=== PATIENT | female | born 1935 | race Caucasian/White ===

== ENCOUNTER 2021-03-03 16:55 | Inpatient (IN) | payer MEDICARE, BC ==
[~2021-03-03] VITALS: Ht 162.6 cm; Wt 54.4 kg
[2021-03-03] MEDS ORDERED: MEMA10TA PO (17:07)
[2021-03-03] MEDS ORDERED: AMLO-213 PO (17:07)
[2021-03-03] MEDS ORDERED: MIRT-90 PO (17:07)
[2021-03-03] MEDS ORDERED: ATOR40TA PO (17:07)
[2021-03-03] MEDS ORDERED: DONE10TA44 PO (17:07)
[2021-03-03] MEDS ORDERED: QUET25TA PO (17:07)
--- NOTE | 2021-03-03 17:15 | NUR ---
BB daughter to ER, from [facility] - they reported that the patient refused to eat and she has not been sleeping since .
[2021-03-03 17:38] LABS: BASOPHILS # (AUTO) 0.1 K/uL (0.0-0.2); BASOPHILS % (AUTO) 1.3 % (0.0-2.0); EOSINOPHILS % (AUTO) 4.4 % (0.0-6.0); HEMATOCRIT 42 % (33-45); HEMOGLOBIN 13.3 g/dL (11.5-14.8); LYMPHOCYTES # (AUTO) 1.9 K/uL (0.8-4.8); LYMPHOCYTES % (AUTO) 24.5 % (20.0-44.0); MEAN CORPUSCULAR HGB CONC 32 g/dl (31.0-36.0); MEAN CORPUSCULAR VOLUME 85 fL (82-100); MONOCYTES # (AUTO) 0.4 K/uL (0.1-1.30); MONOCYTES % (AUTO) 5.4 % (2.0-12.0); NEUTROPHILS # (AUTO) 4.9 K/uL (1.8-8.9); NEUTROPHILS % (AUTO) 64.4 % (43.0-81.0); PLATELET COUNT (AUTO) 368 K/uL (150-450); RED BLOOD CELL COUNT(AUTO) 4.97 MIL/uL (4.0-5.2); WHITE BLOOD COUNT (AUTO) 7.6 K/uL (4.3-11.0)
[2021-03-03 17:44] LABS: CALCIUM, SERUM 8.8 mg/dL (8.5-10.1); CARBON DIOXIDE 26 mmol/L (21-32); CHLORIDE 107 mmol/L (98-107); CREATININE 1.5 mg/dL (0.6-1.3); GLUCOSE 201 mg/dL (74-106); POTASSIUM 3.5 mmol/L (3.5-5.1); SODIUM SERUM 143 mmol/L (136-145); UREA NITROGEN, BLOOD 21 mg/dL (7-18)
[2021-03-03 17:53] LABS: ALANINE AMINOTRANSFERASE 21 U/L (12-78); ALKALINE PHOSPHATASE 157 U/L (46-116); ASPARTATE AMINOTRANSFERASE 19 U/L (15-37); BILIRUBIN,DIRECT 0.1 mg/dL (0.0-0.2); BILIRUBIN,TOTAL 0.3 mg/dL (0.2-1.0); TOTAL PROTEIN, SERUM 7.1 g/dL (6.4-8.2)
[2021-03-03 17:54] LABS: ACETAMINOPHEN < 2 ug/ml (10-30); ALCOHOL, BLOOD < 3 mg/dL (0-0)
--- NOTE | 2021-03-03 19:04 | NUR ---
urine collected and sent to lab.
[2021-03-03 19:15] LABS: BILIRUBIN,URINE Negative (NEGATIVE); COLOR,URINE YELLOW (YELLOW); LEUKOCYTE ESTERASE ,URINE Negative (NEGATIVE); NITRITE, URINE Negative (NEGATIVE); PH,URINE 5.5 (5.0-8.0); PROTEIN,URINE Negative (NEGATIVE); UGLUCOSE Negative (NEGATIVE); UROBILINOGEN,URINE 0.2 EU/dL (0.2)
--- NOTE | 2021-03-03 19:24 | NUR ---
PAGED EPIC FOR PANEL CALL. AWAITING A CALL BACK.
[2021-03-03 19:26] LABS: BACTERIA,URINE Rare /HPF (None Seen); SQUAMOUS EPITHELIAL CELL,UR Few /HPF (None Seen); WBC,URINE NONE SEEN /HPF (0-3)
--- NOTE | 2021-03-03 19:46 | NUR ---
CALLED ELEVATOR TECHNICIAN EVERETT FOR EVAL OF PT. CALL WAS RECIEVED.
--- NOTE | 2021-03-03 19:58 | NUR ---
COVID SWAB COLLECTED AND SENT TO LAB
[2021-03-03] MEDS ORDERED: IV NS 0.9% 500 ML BAG IV ONE (20:00)
--- NOTE | 2021-03-03 20:39 | NUR ---
EVERETT FROM CRISIS TEAM AT BED SIDE TO EVAL
--- NOTE | 2021-03-03 21:43 | NUR ---
REPORT IS GIVEN TO MIGUEL MORRISON AT [facility]
--- NOTE | 2021-03-03 21:55 | NUR ---
PT WAS TRANSFERRED TO [facility] IN STABLE CONDITION
[2021-03-03 22:00] VITALS: BP 130/77
--- NOTE | 2021-03-03 22:00 | NUR ---
[facility] electronic engineering draftsperson notes Received Pt a 86 Y O female from ER. Pt arrived at the unit with two staffs. Hold was placed on 03/03/2021 @ 2049. Per hold Pt is confused, disorganized and disoriented, refusing meds, spitting and throwing meds, not sleeping, anxious, restless, agitated, pulling out cord and cable tv and no viable plan for self care, not eating and not sleeping since last . Unable to care for self. Upon face to face evaluation, Patient is A/oX1, confused, disorganized, anxious and disoriented. skin assessment is done and performed and pictures taken. Accu check done, BS93mg/dl. MRSA swabbed is done. VS is stable. Respiration is normal in room air. No SOB. No S/s of distress noted. Pt's belonging is checked and placed in Pt's locker. Contraband is checked. Pt offered snacks, and water. Reality orientation is provided. Pt denies SI/Hi at this time. Patient is under Psychiatric care of Dr. Pruitt and the medical care of Dr. Solorio. Safety precautions is maintained. bed at low position., brakes locked, side rails upX2, bed alarm is on. Will continue to monitor Q 15 mins check for safety, mood and behavior.
[2021-03-03] MEDS ORDERED: BLOOD SUGAR DIAGNOSTIC 1 EACH STRIP IN ONE (22:30)
[2021-03-03] MEDS ORDERED: MAGNESIUM HYDROXIDE 30 ML UDC PO PRN (22:30)
[2021-03-03] MEDS ORDERED: LORAZEPAM 0.5 MG TABLET PO PRN (22:30)
[2021-03-03] MEDS ORDERED: MAG HYDROX/AL HYDROX/SIMETH 30 ML UDC PO PRN (22:30)
[2021-03-04] MEDS: ZOLPIDEM TARTRATE 5 MG TABLET PO PRN ×2 (01:16→22:58)
--- NOTE | 2021-03-04 01:27 | NUR ---
RN [facility] notes Pt is having insomnia. Administered ambien 5 mg/po as ordered for sleeping. Safety precautions is maintained. Will continue to monitor.
[2021-03-04 06:58] LABS: BASOPHILS # (AUTO) 0.1 K/uL (0.0-0.2); BASOPHILS % (AUTO) 1.1 % (0.0-2.0); HEMATOCRIT 37 % (33-45); HEMOGLOBIN 12.3 g/dL (11.5-14.8); LYMPHOCYTES # (AUTO) 1.8 K/uL (0.8-4.8); LYMPHOCYTES % (AUTO) 23.6 % (20.0-44.0); MEAN CORPUSCULAR HGB CONC 33 g/dl (31.0-36.0); MEAN CORPUSCULAR VOLUME 83 fL (82-100); MONOCYTES # (AUTO) 0.5 K/uL (0.1-1.30); NEUTROPHILS # (AUTO) 4.8 K/uL (1.8-8.9); NEUTROPHILS % (AUTO) 63.3 % (43.0-81.0); PLATELET COUNT (AUTO) 340 K/uL (150-450); RED BLOOD CELL COUNT(AUTO) 4.51 MIL/uL (4.0-5.2); WHITE BLOOD COUNT (AUTO) 7.6 K/uL (4.3-11.0)
[2021-03-04 07:24] LABS: THYROID STIMULATING HORMONE 2.22 uIU/mL (0.358-3.74)
[2021-03-04 08:00] VITALS: BP 127/82
[2021-03-04] MEDS: AMLODIPINE BESYLATE 10 MG TABLET PO SCH ×2 (08:31→08:42)
[2021-03-04] MEDS: MEMANTINE HCL 5 MG TABLET PO SCH ×3 (08:31→16:44)
--- NOTE | 2021-03-04 08:31 | NUR ---
RN NOTE- PT ATTEMPTING TO CLIMB OUT OF BED UNASSISTED, COMBATIVE AND STRIKING STAFF. ATIVAN 1 MG ADMINISTERED
--- NOTE | 2021-03-04 08:42 | NUR ---
RN NOTE- PT SLAPPED MEDS OUT OF HAND. REFUSED ,.. ATIVAN 1 MG WASTED W CHARLOTTE RIVERA
[2021-03-04 08:52] LABS: ALBUMIN 2.7 g/dL (3.4-5.0); BILIRUBIN,TOTAL 0.4 mg/dL (0.2-1.0); CALCIUM, SERUM 8.2 mg/dL (8.5-10.1); CREATININE 1.2 mg/dL (0.6-1.3); POTASSIUM 3.6 mmol/L (3.5-5.1); TOTAL PROTEIN, SERUM 6.1 g/dL (6.4-8.2)
--- NOTE | 2021-03-04 09:55 | NUR ---
WOUND CARE CONSULT: UNABLE TO DO SKIN ASSESSMENT DUE TO PT AGITATED AND COMBATIVE. WILL SEE PT PT CONDITION PERMITS.
--- NOTE | 2021-03-04 10:18 | NUR ---
RN NOTE- DR ZAPIEN AT UNIT. ORDERED NEURO CONSULT W DR HERRERA AND HAD THIS RN NOTIFY MEDICAL GREEN CHAIN OFFBEARER TO BE AWARE OF TWO FALLS IN NOVEMBER . ONE INVOLVING SURGICAL REPAIR AND ONE WITHOUT. ALSO STROKE IN NOVEMBER AND PT WAS FOUND ON CT SCAN TO HAVE THYROID NODULES WHICH WERE NOT ADDRESSED. HODAN STARR ELECTRIC SHOVEL OPERATOR NOTIFIED AND CASSIDY AT DR [place] OFFICE NOTIFIED ON COSULT
[2021-03-04 12:55] LABS: CHOLESTEROL 131 mg/dL (<200); HDL CHOLESTEROL 56 mg/dL (40-60); LDL 62 mg/dL (0-99); TRIGLYCERIDES 40 mg/dL (30-150)
--- NOTE | 2021-03-04 14:28 | NUR ---
ROSALVA Initial Discharge Plan: Patient currently resides at [facility] located at [address] [place] [id number] ;([phone]). ROSALVA spoke with Brittany Vick from [facility] who stated that pt is welcomed back upon dc. ROSALVA contacted pt's daughter Barbra ([phone]) to gather collateral, however, she was unavailable. ROSALVA left a voicemail. ROSALVA will work with the MD and family to coordinate appropriate discharge.
--- NOTE | 2021-03-04 14:29 | NUR ---
ROSALVA Family Contact: ROSALVA contacted pt's daughter Barbra ([phone]) to gather collateral, however, she was unavailable. ROSALVA left a voicemail.
[2021-03-04] MEDS: ENSURE ENLIVE 237 ML LIQUID (VANILLA) PO SCH ×2 (14:30→16:50)
--- NOTE | 2021-03-04 15:23 | NUR ---
Home Health: SW received a call from Rachel from [place] home health agency ([phone] ([phone]) who stated that pt has an active home health services and would want to resume services back upon dc.
--- NOTE | 2021-03-04 15:23 | NUR ---
SW Family Contact: SW received a voicemail from Barbra ([phone]) who stated upon dc she would want pt to return back to [facility].
[2021-03-04 16:11] VITALS: BP 93/75
[2021-03-04] MEDS: QUETIAPINE FUMARATE 25 MG TABLET PO SCH ×2 (16:49→21:49)
--- NOTE | 2021-03-04 20:00 | NUR ---
RN NOTES: RECEIVED PATIENT AWAKE IN [place] CHAIR PATIENT WAS AGITATED, COMBATIVE AND NOT ABLE TO LISTEN TO INSTRUCTION, VERBALLY RESPONSIVE, NO SOB NOTED, NO COMPLAIN OF PAIN. AND DISCOMFORT, PATIENT IS NONE AMBULATORY DUE TO UNSTEADY GAIT, KEPT CLEAN AND DRY, WILL CONTINUE TO MONITOR.
[2021-03-04] MEDS: ATORVASTATIN 40 MG TABLET PO SCH (21:48)
[2021-03-04] MEDS: DONEPEZIL 5 MG TABLET PO SCH (21:48)
--- NOTE | 2021-03-04 23:26 | NUR ---
MIGUEL NOTES: URIN SPECIMEN TAKEN AT [address] IN BUCKET WITH CUP ON ICE.
[2021-03-05 06:38] LABS: BILIRUBIN,URINE NEGATIVE (NEGATIVE); COLOR,URINE YELLOW (YELLOW); NITRITE, URINE POSITIVE (NEGATIVE); PH,URINE 5.5 (5.0-8.0); PROTEIN,URINE NEGATIVE (NEGATIVE); UGLUCOSE NEGATIVE (NEGATIVE); UROBILINOGEN,URINE 0.2 EU/dL (0.2)
--- NOTE | 2021-03-05 07:18 | NUR ---
GPS RN NOTE RECEIVED PATIENT ASLEEP ON BED. COMFORT MEASURES PROVIDED. PATIENT ALLOWED TO SLEEP. ENDORSED, PATIENT SLEPT 3 HOURS LAST NIGHT AND THEN WENT TO SLEEP AGAIN AROUND 0530H. PATIENT DOES NOT SHOW ANY SIGNS OF DISTRESS WITH RR OF 19. PROVIDED WITH CALM AND QUIET ENVIRONMENT. SAFETY MEASURES ENSURED WITH SIDERAILS UP AND BED ALARM ON. WILL CONTINUE TO MONITOR PATIENT.
[2021-03-05 08:00] VITALS: BP 154/63
--- NOTE | 2021-03-05 08:15 | NUR ---
GPS RN NOTE WHEN PATIENT WAS BEING ASSISTED EATING, PATIENT NOTED TO HAVE MEPILEX ON HER LEFT FORE ARM. PATIENT REFUSING TO HAVE IT CHECKED BUT PART OF THE MEPILEX WAS OFF AND NOTED WOUND ON THE LEFT FORE ARM. PATIENT REFUSED TO HAVE IT CHECKED AT THIS TIME. WILL ASK AGAIN LATER TO CHECK IT. WILL CONTINUE TO MONITOR PATIENT.
[2021-03-05] MEDS: ENSURE ENLIVE 237 ML LIQUID (VANILLA) PO SCH ×2 (09:00→17:35)
[2021-03-05 09:13] LABS: RBC,URINE NONE SEEN /HPF (0-2)
[2021-03-05 09:14] LABS: BACTERIA,URINE 2+ /HPF (None Seen); LEUKOCYTE ESTERASE ,URINE 1+ (NEGATIVE); SQUAMOUS EPITHELIAL CELL,UR Few /HPF (None Seen); URINE AMORPHOUS URATE Many /HPF (None Seen)
[2021-03-05 09:15] LABS: CALCIUM OXALATE CRYSTALS,UR Moderate /HPF (None Seen)
--- NOTE | 2021-03-05 09:15 | NUR ---
GPS RN NOTE PATIENT REFUSING MEDICATION. WILL TRY AGAIN LATER. PATIENT IS NON COMPLIANT AND SUSPICIOUS. WILL CONTINUE TO MONITOR PATIENT.
--- NOTE | 2021-03-05 09:30 | NUR ---
MS RN NOTE PATIENT WOUND EXAMINED AND PICTURE TAKEN AND ATTACHED TO CHART. WOUND RE-DRESSED INDICATED AND DR. VYAS NOTIFIED FOR POSSIBLE WOUND CONSULT. WILL CONTINUE TO MONITOR PATIENT.
[2021-03-05] MEDS: MEMANTINE HCL 5 MG TABLET PO SCH ×2 (10:10→17:00)
[2021-03-05] MEDS: QUETIAPINE FUMARATE 25 MG TABLET PO SCH ×3 (10:11→21:38)
[2021-03-05] MEDS: AMLODIPINE BESYLATE 10 MG TABLET PO SCH (10:15)
--- NOTE | 2021-03-05 10:30 | NUR ---
GPS RN NOTE PATIENT ONLY ABLE TO TAKE SOME MEDICATION, WHEN SHE GOT A TASTE OF THE MEDICATION SHE STARTED SPITTING IT OUT. WAS ABLE TO TAKE ONLY HALF OF THE MEDICATION GIVEN MIXED WITH APPLE SAUCE.
--- NOTE | 2021-03-05 13:00 | NUR ---
[facility]PS RN NOTE SEEN BY LUZ STRONG OF HEAMATOLOGY/ ONCOLOGY.
--- NOTE | 2021-03-05 15:37 | NUR ---
GPS NOTE PATIENT FOR BLOOD DRAW ORDERED, BUT REFUSED TO HAVE BLOOD DRAWN. ADJUNCT PSYCHOLOGY INSTRUCTOR WILL TRY AGAIN LATER. WILL CONTINUE TO MONITOR PATIENT.
[2021-03-05 16:00] VITALS: BP 134/74
--- NOTE | 2021-03-05 17:38 | NUR ---
GPS NOTE PATIENT PATIENT IS ALERT AND COHERENT. REFUSING MEDICATION, PATIENT ALSO REFUSING PUDDING, JUICE OR APPLE SAUCE MEANS TO GIVE MEDICATION. PATIENT VERY SUSPICIOUS ABOUT APPLE SAUCE OR PUDDING [id number] TO HER. SHE SAID SHE DOES NOT NEED MEDICATION AND THAT SHE IS PERFECTLY FINE. EXPLAINED RISKS AND BENEFITS OF MEDICATION COMPLIANCE AND NON-COMPLIANCE. VERBALIZED UNDERSTANDING. WILL CONTINUE TO MONITOR PATIENT.
--- NOTE | 2021-03-05 19:00 | NUR ---
GPS RN NOTE RECEIVED PATIENT AWAKE AND IN BED, SITTER AT BEDSIDE, NO S/S OR COMPLAINTS OF PAIN AT THIS TIME. PATIENT IS DISPLAYING NO S/S OF APPARENT DISTRESS AT THIS TIME. BREATHING IS EVEN AND UNLABORED WITH EQUAL RISE AND FALL OF THE CHEST. PATIENT IS AO X 2, ON ROOM AIR WITH SPO2 97%. PATIENT IS COMPLIANT WITH MEDICATION, RESPONDING TO INTERNAL STIMULI, AND COOPERATIVE. PATIENT DENIES SUICIDAL AND HOMICIDAL ISEATIONS AT THIS TIME. PATIENT IS AMBULATORY AND ASSISTED BY SITTER WITH TOILETING. EDUCATED PATIENT ON THE USE OF THE CALL LIGHT. PATIENT SIDE RAILS UP X 2 FOR SAFETY, BED IS LOCKED AND LOW. WILL CONTINUE TO MONITOR Q15 MIN WITH THE HELP OF SITTER TO MAINTAIN SAFETY.
--- NOTE | 2021-03-05 19:00 | NUR ---
GPS RN NOTE RECEIVED PATIENT AWAKE, AMBULATORY AND HAS BEEN WALKING AROUND THE UNIT, NO S/S OR COMPLAINTS OF PAIN AT THIS TIME. PT IS GERMAN SPEAKING BUT UNDERSTANDS SIMPLE INSTRUCTIONS IN [place]. PATIENT IS DISPLAYING NO S/S OF APPARENT DISTRESS AT THIS TIME. BREATHING IS EVEN AND UNLABORED WITH EQUAL RISE AND FALL OF THE CHEST. PATIENT IS AO X 2, ON ROOM AIR WITH SPO2 96%. PATIENT IS RESPONDING TO INTERNAL STIMULI, AND COOPERATIVE. PATIENT DENIES SUICIDAL AND HOMICIDAL ISEATIONS AT THIS TIME. SAFETY MEASURES IN PLACE, BED IS LOCKED AND LOW. WILL CONTINUE TO MONITOR Q15 MIN WITH THE HELP OF SITTER TO MAINTAIN SAFETY. Addendum: 03/06/21 at 0108 by BENITO SORIA RN THIS DOCUMENTATION IS MEANT FOR ANOTHER PATIENT
--- NOTE | 2021-03-05 19:00 | NUR ---
GPS RN NOTE PATIENT AWAKE ON TIM CHAIR WITH DAUGHTER AT BEDSIDE. BLOOD DRAWN DONE. PATIENT DOES NOT SHOW ANY SIGNS OF DISTRESS WITH RR OF 19. PROVIDED WITH CALM AND QUIET ENVIRONMENT. SAFETY MEASURES ENSURED ON CLOSE WATCH. PATIENT WAS VERY SUSPICIOUS AND WOULD USUALLY SPIT MEDICATION WHEN SHE GETS A TASTE OF IT. MIXED MEDICATION WITH PUDDING AND SHE WAS ABLE TO TOLERATE IT. WILL ENDORSE TO NEXT SHIFT FOR CONTINUITY OF CARE.
[2021-03-05 20:00] VITALS: BP_SYST 137; BP_SYST 147; BP_DIAS 79
[2021-03-05] MEDS: ATORVASTATIN 40 MG TABLET PO SCH (21:38)
[2021-03-05] MEDS: DONEPEZIL 5 MG TABLET PO SCH (21:38)
[2021-03-06 08:00] VITALS: BP 146/69
[2021-03-06] MEDS: ENSURE ENLIVE 237 ML LIQUID (VANILLA) PO SCH ×2 (09:05→17:06)
[2021-03-06] MEDS: MEMANTINE HCL 5 MG TABLET PO SCH ×2 (09:06→17:00)
[2021-03-06] MEDS: AMLODIPINE BESYLATE 10 MG TABLET PO SCH (09:06)
[2021-03-06] MEDS: QUETIAPINE FUMARATE 25 MG TABLET PO SCH ×4 (09:06→21:57)
--- NOTE | 2021-03-06 09:30 | NUR ---
RADIOLOGY UNABLE TO DO THYROID SCAN PT IS REQUIRED TO REMAIN STILL FOR 45 MINUTES AND TO SWALLOW A LARGE PILL, PER TECH. PCP MINDY AWARE.
[2021-03-06 16:00] VITALS: BP 128/64
--- NOTE | 2021-03-06 19:30 | NUR ---
GPS RN NOTE, RECEIVED PATIENT AWAKE AND IN BED, NO S/S OR COMPLAINTS OF PAIN AT THIS TIME. PATIENT IS DISPLAYING NO S/S OF APPARENT DISTRESS AT THIS TIME. PATIENT BREATHING IS UNLABORED WITH EQUAL RISE AND FALL OF THE CHEST. PATIENT IS ALERT AND ORIENTED X 1-2 ON ROOM AIR WITH A SPO2 97%. PATIENT IS NON COMPLIANT WITH MEDICATIONS, CONFUSED, FORGETFUL, ANXIOUS AT TIMES, UNCOOPERATIVE AND NEEDS REDIRECTION. PATIENT DENIES SUICIDAL AND HOMICIDAL IDEATIONS AT THIS TIME. PATIENT ASSISTED WITH TURNING AND REPOSITIONING Q2HR AND PRN FOR COMFORT AND CIRCULATION. PATIENT HAS NO NEEDS AT THIS TIME. PATIENT EDUCATED ON THE USE OF THE CALL STOUT. PATIENT BED SIDE RAILS UP X 2 FOR SAFETY. PATIENT BED IS LOCKED, LOW, WITH BED ALARM ON. WILL CONTINUE TO MONITOR THIS PATIENT Q15 MINUTES WITH THE HELP OF STAFF TO MAINTAIN SAFETY.
[2021-03-06 19:46] VITALS: BP 136/74
[2021-03-06] MEDS: ATORVASTATIN 40 MG TABLET PO SCH ×2 (21:40→21:57)
[2021-03-06] MEDS: DONEPEZIL 5 MG TABLET PO SCH ×2 (21:40→21:57)
--- NOTE | 2021-03-06 21:57 | NUR ---
GPS RN NOTE, PATIENT REFUSED ARICEPT 10MG PO HS, LIPITOR 80MG PO HS, AND SEROQUEL 50MG PO HS. OFFERED AFOREMENTIONED THREE TIMES AND STILL PATIENT REFUSED STATING, " IT'S MY BODY AND I HAVE THE RIGHT TO REFUSE MEDICATION IF I WANT TO ". EDUCATED PATIENT ON THE RISKS AND BENEFITS OF TAKING AND REFUSING ARICEPT, LIPITOR, SEROQUEL. WILL CONTINUE TO MONITOR THIS PATIENT WITH THE HELP OF STAFF.
[2021-03-07] MEDS: ZOLPIDEM TARTRATE 5 MG TABLET PO PRN ×2 (02:07→21:56)
--- NOTE | 2021-03-07 02:07 | NUR ---
GPS RN NOTE, PATIENT HAS A COMPLAINT OF NOT BEING ABLE TO SLEEP AND IS REQUESTING MEDICATION. PATIENT VITAL SIGNS ARE STABLE. GAVE AMBIEN 5 MG PO HS PRN ORDERED. WILL REASSESS FOR INSOMNIA AND I WILL CONTINUE TO MONITOR THIS PATIENT.
[2021-03-07 08:00] VITALS: BP 141/65
[2021-03-07] MEDS: MEMANTINE HCL 5 MG TABLET PO SCH ×2 (08:29→16:51)
[2021-03-07] MEDS: QUETIAPINE FUMARATE 25 MG TABLET PO SCH ×3 (08:30→21:06)
[2021-03-07] MEDS: AMLODIPINE BESYLATE 10 MG TABLET PO SCH (08:30)
[2021-03-07] MEDS: ENSURE ENLIVE 237 ML LIQUID (VANILLA) PO SCH ×2 (08:31→16:44)
--- NOTE | 2021-03-07 09:48 | NUR ---
Individual Therapy Note: pipe production worker met with patient and provided brief supportive counseling. Patient presented quite confused and disoriented. Patient barely alert and oriented to self.
[2021-03-07 16:00] VITALS: BP 122/63
[2021-03-07 19:54] VITALS: BP 121/70
[2021-03-07] MEDS: DONEPEZIL 5 MG TABLET PO SCH (21:05)
[2021-03-07] MEDS: ACETAMINOPHEN 325 MG TABLET PO PRN (21:06)
[2021-03-07] MEDS: ATORVASTATIN 40 MG TABLET PO SCH (21:06)
--- NOTE | 2021-03-07 21:08 | NUR ---
GPS RN NOTES: TYLENOL 650MG PO GIVEN FOR BACK PAIN AT 2105. WILL CONTINUE TO MONITOR.
--- NOTE | 2021-03-07 21:59 | NUR ---
GPS RN NOTES: Ambien 5mg given PO at 2156. Will continue to monitor.
--- NOTE | 2021-03-08 06:53 | NUR ---
GPS RN CLOSING NOTES: PATIENT IS CURRENTLY LAYING IN BED, SLEEPING INTERMITTENTLY. PATIENT SLEPT 8HRS THIS SHIFT. NO S/S OF DISTRESS. RESPIRATION EVEN AND UNLABORED WITH EQUAL RISE AND FALL OF THE CHEST, ON ROOM AIR. ALL PATIENT CARE NEEDS HAVE BEEN MET ANTICIPATED. WILL CONTINUE TO MONITOR AND AND ENDORSE TO AM SHIFT.
[2021-03-08 08:00] VITALS: BP 126/60
[2021-03-08] MEDS: ENSURE ENLIVE 237 ML LIQUID (VANILLA) PO SCH ×2 (08:31→17:40)
[2021-03-08] MEDS: MEMANTINE HCL 5 MG TABLET PO SCH ×2 (08:32→17:41)
[2021-03-08] MEDS: QUETIAPINE FUMARATE 25 MG TABLET PO SCH ×4 (08:32→22:00)
[2021-03-08] MEDS: AMLODIPINE BESYLATE 10 MG TABLET PO SCH (08:33)
[2021-03-08 16:00] VITALS: BP 130/72
[2021-03-08] MEDS: DONEPEZIL 5 MG TABLET PO SCH ×2 (21:22→22:00)
[2021-03-08] MEDS: ATORVASTATIN 40 MG TABLET PO SCH ×2 (21:22→22:00)
--- NOTE | 2021-03-08 22:23 | NUR ---
MIGUEL NOTES: 3X TRIED TO GIVE PREPARED MEDICATION TO PATIENT, SHE TOOK AND SPIT IT ALL OUT. Addendum: 03/08/21 at 2256 by ARIADNA FISHER RN ADDED NOTES: -MEREDITH/MIGUEL/BIJAN NOTIFIED.
--- NOTE | 2021-03-08 22:56 | NUR ---
RN NOTES: DANUTA TRIED TO GET HER V/S SEVERAL TIMES BUT SHE STRONGLY REFUSED, SHE HAS PERIODS OF ANXIOUSNESS, SHE WILL TALK CONTINUOUSLY AND ASKING THE SAME QUESTION ALL OVER AGAIN. BUT NO COMBATIVE BEHAVIOR.SHE JUST THROW HER BLANKET ON THE FLOOR, ON CLOSE WATCH.
[2021-03-09 08:00] VITALS: BP 142/57
[2021-03-09] MEDS: ENSURE ENLIVE 237 ML LIQUID (VANILLA) PO SCH ×2 (08:30→17:38)
[2021-03-09] MEDS: AMLODIPINE BESYLATE 10 MG TABLET PO SCH (08:32)
[2021-03-09] MEDS: QUETIAPINE FUMARATE 25 MG TABLET PO SCH ×3 (08:32→21:12)
[2021-03-09] MEDS: MEMANTINE HCL 5 MG TABLET PO SCH ×2 (08:32→17:39)
[2021-03-09 16:00] VITALS: BP 144/76
[2021-03-09 19:34] VITALS: BP 144/53
[2021-03-09] MEDS: DONEPEZIL 5 MG TABLET PO SCH (21:12)
[2021-03-09] MEDS: ATORVASTATIN 40 MG TABLET PO SCH (21:12)
[2021-03-09] MEDS: ZOLPIDEM TARTRATE 5 MG TABLET PO PRN (22:00)
--- NOTE | 2021-03-10 06:46 | NUR ---
GPS RN CLOSING NOTES: PATIENT IS CURRENTLY SLEEPING COMFORTABLY IN BED. PATIENT SLEPT 7HRS THIS SHIFT. WEEKLY SKIN ASSESSMENT DONE, PICTURES TAKEN AND PLACED IN PATIENT CHART. NO S/S OF DISTRESS. RESPIRATION EVEN AND UNLABORED WITH EQUAL RISE AND FALL OF THE CHEST, ON ROOM AIR. ALL PATIENT CARE NEEDS HAVE BEEN MET ANTICIPATED. BED IN LOWEST POSITION AND LOCKED, SIDE RAILS UP X2 FOR SAFETY. WILL CONTINUE TO MONITOR AND AND ENDORSE TO AM SHIFT.
[2021-03-10 08:00] VITALS: BP 128/72
[2021-03-10] MEDS: ENSURE ENLIVE 237 ML LIQUID (VANILLA) PO SCH ×2 (09:20→16:52)
[2021-03-10] MEDS: AMLODIPINE BESYLATE 10 MG TABLET PO SCH (09:23)
[2021-03-10] MEDS: QUETIAPINE FUMARATE 25 MG TABLET PO SCH ×3 (09:23→21:36)
[2021-03-10] MEDS: MEMANTINE HCL 5 MG TABLET PO SCH ×2 (09:24→16:55)
--- NOTE | 2021-03-10 10:58 | NUR ---
WOUND CARE CONSULT: PT ADAMANTLY REFUSED SKIN ASSESSMENT. DISCUSSED SKIN PROTECTION WITH NURSING STAFF. WILL SEE PT PT CONDITION PERMITS.
[2021-03-10] MEDS ORDERED: Z GUARD REMEDY 2 OZ OINT TP PRN (11:00)
[2021-03-10] MEDS: Z GUARD REMEDY 2 OZ OINT TP SCH (11:00)
[2021-03-10 16:00] VITALS: BP 114/67
[2021-03-10 19:47] VITALS: BP 128/65
[2021-03-10] MEDS: ACETAMINOPHEN 325 MG TABLET PO PRN (21:36)
[2021-03-10] MEDS: DONEPEZIL 5 MG TABLET PO SCH (21:36)
[2021-03-10] MEDS: ATORVASTATIN 40 MG TABLET PO SCH (21:36)
[2021-03-10] MEDS: ZOLPIDEM TARTRATE 5 MG TABLET PO PRN (22:38)
[2021-03-11 08:00] VITALS: BP 125/62
[2021-03-11] MEDS: Z GUARD REMEDY 2 OZ OINT TP SCH (08:37)
[2021-03-11] MEDS: ENSURE ENLIVE 237 ML LIQUID (VANILLA) PO SCH ×3 (08:43→17:00)
[2021-03-11] MEDS: AMLODIPINE BESYLATE 10 MG TABLET PO SCH (08:44)
[2021-03-11] MEDS: MEMANTINE HCL 5 MG TABLET PO SCH ×3 (08:44→17:00)
[2021-03-11] MEDS: QUETIAPINE FUMARATE 25 MG TABLET PO SCH ×4 (08:44→22:06)
--- NOTE | 2021-03-11 09:09 | NUR ---
ROSALVA Family Contact: ROSALVA received a call from patient's daughter Barbra ([phone]) who stated they are looking into a different facility for pt and wanted recommendations. SW gave her options for [facility] and daughter stated no they do not want that facility and stated they are now looking into a memory care unit in [facility].
--- NOTE | 2021-03-11 09:45 | NUR ---
Court Hearing: Patient's 3950 hearing was today and it was upheld for GD.
[2021-03-11 16:00] VITALS: BP 158/63
[2021-03-11 20:00] VITALS: BP 139/62
[2021-03-11] MEDS: DONEPEZIL 5 MG TABLET PO SCH (22:06)
[2021-03-11] MEDS: ATORVASTATIN 40 MG TABLET PO SCH (22:07)
[2021-03-12 08:00] VITALS: BP 138/73
[2021-03-12] MEDS: Z GUARD REMEDY 2 OZ OINT TP SCH (08:30)
[2021-03-12] MEDS: MEMANTINE HCL 5 MG TABLET PO SCH ×2 (08:40→16:34)
[2021-03-12] MEDS: AMLODIPINE BESYLATE 10 MG TABLET PO SCH (08:40)
[2021-03-12] MEDS: ENSURE ENLIVE 237 ML LIQUID (VANILLA) PO SCH ×2 (08:40→16:17)
[2021-03-12] MEDS: QUETIAPINE FUMARATE 25 MG TABLET PO SCH ×3 (08:41→21:13)
[2021-03-12 16:00] VITALS: BP 146/64
[2021-03-12] MEDS: ZOLPIDEM TARTRATE 5 MG TABLET PO PRN (20:48)
--- NOTE | 2021-03-12 20:48 | NUR ---
GPS RN NOTES: AMBIEN 5MG/1TAB GIVEN PO AT 2047. WILL CONTINUE TO MONITOR.
[2021-03-12] MEDS: ATORVASTATIN 40 MG TABLET PO SCH (21:13)
[2021-03-12] MEDS: DONEPEZIL 5 MG TABLET PO SCH (21:14)
[2021-03-13 08:00] VITALS: BP 110/59
[2021-03-13] MEDS: ENSURE ENLIVE 237 ML LIQUID (VANILLA) PO SCH ×2 (09:01→16:18)
[2021-03-13] MEDS: QUETIAPINE FUMARATE 25 MG TABLET PO SCH ×3 (09:02→21:44)
[2021-03-13] MEDS: Z GUARD REMEDY 2 OZ OINT TP SCH (09:02)
[2021-03-13] MEDS: MEMANTINE HCL 5 MG TABLET PO SCH ×2 (09:03→16:37)
[2021-03-13] MEDS: AMLODIPINE BESYLATE 10 MG TABLET PO SCH (09:03)
[2021-03-13 16:00] VITALS: BP 113/64
[2021-03-13 20:00] VITALS: BP 134/69
[2021-03-13] MEDS: ATORVASTATIN 40 MG TABLET PO SCH (21:44)
[2021-03-13] MEDS: DONEPEZIL 5 MG TABLET PO SCH (21:44)
[2021-03-14] MEDS: ZOLPIDEM TARTRATE 5 MG TABLET PO PRN (01:54)
--- NOTE | 2021-03-14 06:39 | NUR ---
03/14/21 0154 Ambien 5mg given per clinical assessment. Effective. Vital signs WNL.
--- NOTE | 2021-03-14 07:28 | NUR ---
WOUND CARE CONSULT: PT SEEN FOR LESION TO RT SIDE OF NOSE. DEFER TO PMD FOR LESION. NO DRAINAGE NOTED.
[2021-03-14 08:00] VITALS: BP 110/59
[2021-03-14] MEDS: MEMANTINE HCL 5 MG TABLET PO SCH ×2 (08:30→17:45)
[2021-03-14] MEDS: QUETIAPINE FUMARATE 25 MG TABLET PO SCH ×3 (08:30→21:34)
[2021-03-14] MEDS: AMLODIPINE BESYLATE 10 MG TABLET PO SCH (08:31)
[2021-03-14] MEDS: ENSURE ENLIVE 237 ML LIQUID (VANILLA) PO SCH ×2 (08:31→17:45)
[2021-03-14] MEDS: Z GUARD REMEDY 2 OZ OINT TP SCH (08:32)
[2021-03-14 15:43] VITALS: BP 127/68
--- NOTE | 2021-03-14 19:15 | NUR ---
BID ANALYST NOTES: RECEIVED PATIENT AWAKE AND IN BED. NO COMPLAINTS OF PAIN AT THIS TIME. NO S/S OF ACUTE DISTRESS. PT ON ROOM AIR. BREATHING EVEN AND UNLABORED WITH EQUAL RISE AND FALL OF THE CHEST. A/O X 2. PATIENT IS COMPLIANT WITH MEDICATION, RESPONDING TO INTERNAL STIMULI, AND COOPERATIVE. PATIENT DENIES SUICIDAL AND HOMICIDAL IDEATIONS AT THIS TIME. PATIENT IS AMBULATORY WITH ASSISTANCE. ALL SAFETY MEASURES OBSERVED. WILL CONTINUE TO MONITOR Q15 MIN WITH HELP OF STAFF TO MAINTAIN SAFETY.
[2021-03-14 20:50] VITALS: BP 116/52
[2021-03-14] MEDS: DONEPEZIL 5 MG TABLET PO SCH (21:35)
[2021-03-14] MEDS: ATORVASTATIN 40 MG TABLET PO SCH (21:35)
[2021-03-15 08:00] VITALS: BP 136/69
--- NOTE | 2021-03-15 08:54 | NUR ---
Pt. refused for chest x-ray at this time and insisted to say no
[2021-03-15] MEDS: MEMANTINE HCL 5 MG TABLET PO SCH ×2 (08:58→16:29)
[2021-03-15] MEDS: QUETIAPINE FUMARATE 25 MG TABLET PO SCH ×3 (08:58→21:17)
[2021-03-15] MEDS: ENSURE ENLIVE 237 ML LIQUID (VANILLA) PO SCH ×2 (08:58→16:33)
[2021-03-15] MEDS: AMLODIPINE BESYLATE 10 MG TABLET PO SCH (09:00)
[2021-03-15] MEDS ORDERED: POLYETHYLENE GLYCOL 3350 17 GM POWD.PACK PO PRN (09:30)
[2021-03-15] MEDS: Z GUARD REMEDY 2 OZ OINT TP SCH (10:39)
[2021-03-15 16:00] VITALS: BP 112/57
[2021-03-15] MEDS: ATORVASTATIN 40 MG TABLET PO SCH (21:16)
[2021-03-15] MEDS: DONEPEZIL 5 MG TABLET PO SCH (21:17)
[2021-03-16 08:00] VITALS: BP 113/59
[2021-03-16] MEDS: QUETIAPINE FUMARATE 25 MG TABLET PO SCH ×3 (08:12→22:00)
[2021-03-16] MEDS: MEMANTINE HCL 5 MG TABLET PO SCH ×2 (08:12→17:18)
[2021-03-16] MEDS: AMLODIPINE BESYLATE 10 MG TABLET PO SCH (08:13)
[2021-03-16] MEDS: Z GUARD REMEDY 2 OZ OINT TP SCH (08:14)
[2021-03-16] MEDS: ENSURE ENLIVE 237 ML LIQUID (VANILLA) PO SCH ×2 (08:14→17:18)
[2021-03-16 16:00] VITALS: BP 129/66
[2021-03-16 19:57] VITALS: BP 145/61
[2021-03-16] MEDS: ZOLPIDEM TARTRATE 5 MG TABLET PO PRN ×2 (21:23→21:26)
--- NOTE | 2021-03-16 21:28 | NUR ---
GPS RN NOTES: AMBIEN 5MG/1TAB GIVEN PO AT 2125. WILL CONTINUE TO MONITOR
[2021-03-16] MEDS: DONEPEZIL 5 MG TABLET PO SCH (21:59)
[2021-03-16] MEDS: ATORVASTATIN 40 MG TABLET PO SCH (21:59)
--- NOTE | 2021-03-17 06:57 | NUR ---
GPS RN CLOSING NOTES: PATIENT IS CURRENTLY LAYING ON BED SLEEPING. PATIENT SLEPT 8HRS THIS SHIFT. WEEKLY SKIN ASSESSMENT DONE, PICTURES TAKEN AND PLACED IN PATIENT CHART, NO NEW SKIN ISSUES NOTED. NO S/S OF DISTRESS. RESPIRATION EVEN AND UNLABORED WITH EQUAL RISE AND FALL OF THE CHEST, ON ROOM AIR. ALL PATIENT CARE NEEDS HAVE BEEN MET ANTICIPATED. BED IN LOWEST POSITION AND LOCKED, SIDE RAILS UP X2 FOR SAFETY. WILL CONTINUE TO MONITOR AND ENDORSE TO AM SHIFT.
[2021-03-17 08:00] VITALS: BP 140/73
--- NOTE | 2021-03-17 08:10 | NUR ---
ROSALVA Discharge Note: Patient will be discharged to [facility] located at [address], [place] [address]; ([phone]). Patients daughter Barbra ([phone]) will pick up operator pt at 1PM. ROSALVA contacted pt's daughter Barbra ([phone]) is aware and agreeable with discharge. ROSALVA spoke with [facility] ([phone]) who is accepting pt. Patient is alert and oriented x1, however, she is happy to be going back home. Patient denies visual/auditory hallucinations. Patient denies suicidal or homicidal ideation. [facility] stated they will assign a primary doctor upon and will monitor her psychotropic medications. Patient presents with euthymic mood and congruent affect.
[2021-03-17] MEDS: Z GUARD REMEDY 2 OZ OINT TP SCH (09:26)
[2021-03-17] MEDS: ENSURE ENLIVE 237 ML LIQUID (VANILLA) PO SCH (09:26)
[2021-03-17 09:37] VITALS: BP 139/67
[2021-03-17] MEDS: MEMANTINE HCL 5 MG TABLET PO SCH (09:37)
[2021-03-17] MEDS: AMLODIPINE BESYLATE 10 MG TABLET PO SCH (09:37)
[2021-03-17] MEDS: QUETIAPINE FUMARATE 25 MG TABLET PO SCH (09:38)
--- NOTE | 2021-03-17 12:30 | NUR ---
Patient discharged to assisted living in stable condition .Patient denies suicidal ideation ,homicidal ideation ,denies auditory /visual hallucination .Behavior Patient improved ,psychiatric tx plans met ,medical treatment plans deferred for continual monitoring Educated patient and daughter about after care plan (EXIT CARE) and prescriptions .All belongings returned to patient .Patient discharged to [facility] Patients daughter Barbra pick her up pt at 1230 .
== END 2021-03-17 12:30 | DRG 885 ==
LOC: ER 16:59 → MEDSG1 19:50 → GPS 21:37
PROVIDERS: ADMIT Psychiatry & Neurology Psychiatry; ATTEND Hospitalist
DX: F29 Unspecified psychosis not due to a substance or known physiological condition (principal); E43 Unspecified severe protein-calorie malnutrition; N17.9 Acute kidney failure, unspecified; F03.91 Unspecified dementia, unspecified severity, with behavioral disturbance; Z73.6 Limitation of activities due to disability; I10 Essential (primary) hypertension; E78.5 Hyperlipidemia, unspecified; R62.7 Adult failure to thrive; Z86.73 Personal history of transient ischemic attack (TIA), and cerebral infarction without residual deficits; Z91.81 History of falling; E04.2 Nontoxic multinodular goiter; Z79.899 Other long term (current) drug therapy; Z96.649 Presence of unspecified artificial hip joint; Z68.20 Body mass index [BMI] 20.0-20.9, adult
CPT/HCPCS: 36415; 71045-TC; 76536-TC; 80048-TC; 80053-TC; 80061-TC; 80076-TC; 81001; 82962-TC; 84439-TC; 84443-TC; 85025-TC; 86800; 87081-TC; 87086-TC; G0480; U0003